=== PATIENT | male | born 2000 | race Caucasian/White ===

== ENCOUNTER 2020-02-26 10:03 | Emergency (ER) | payer SELFPAY ==
[2020-02-26 12:00] VITALS: BP 127/75; PULSE 97; RESP 18; TEMP 36.6; O2SAT 97
--- NOTE | 2020-02-26 12:46 | ED.GIBLEED ---
HPI - GI Bleed General Chief complaint: GI Bleed Stated complaint: 2 W/ weeks diarrhea and now having bloody stools Source: patient Mode of arrival: ambulatory Limitations: no limitations History of Present Illness HPI Narrative: This 19-year-old male has had GI symptoms for the last 2 weeks. Once or twice daily he developed mid abdominal cramping followed 20-30 minutes later by passing a soft formed stool. The pain subsides after 20-30 minutes. At 7:30 a.m. this morning. Stool came out soft but formed unusual color. He thought it was blood mixed with stool which is what brought into the ED. He denies hemorrhoids Or blood on tissue when he wipes. Is typical abdominal pain subsided after the bowel movement He denies family members at home at [facility]. He has had no recent travel, eaten unusual foods or drink on. For water. Related Data Home Medications Medication Instructions Recorded Confirmed No Home Medications 02/26/20 02/26/20 Allergies Allergy/AdvReac Type Severity Reaction Status Date / Time No Known Allergies Allergy Verified 02/26/20 12:48 Review of Systems Constitutional: Constitutional: Denies chills and Denies fever(s) [facility] Past Medical History Medical History (Updated 02/27/20 @ 04:39 by Shaji Denney MD) Patient denies significant medical history Exam Narrative: Exam Narrative: Appears slightly anxious in no distress healthy-appearing Const: General: no acute distress GI: Inspection: normal to inspection and non-distended GI Palp: No abdominal tenderness and Yes No hepatosplenomegaly present Rectal Exam: normal sphincter tone, No External hemorrhoid(s) present, No Anal fissure(s) present and No mass Other: soft stool in the rectum. stool for on glove is brown, there is no blood or melena. Course Vital Signs Vital signs: Vital Signs Temperature 36.6 C 02/26/20 12:00 Pulse Rate 97 02/26/20 12:00 Respiratory Rate 18 02/26/20 12:00 Blood Pressure 127/75 02/26/20 12:00 Pulse Oximetry 97 02/26/20 12:00 Temperature 36.6 C 02/26/20 12:00 Pulse Rate 97 02/26/20 12:00 Respiratory Rate 15 02/26/20 12:58 Blood Pressure 127/75 07/15/20 12:00 Pulse Oximetry 100 02/26/20 12:58 MDM - GI Bleed MDM Narrative Medical decision making narrative: he likely did not having hematochezia few of the insert and color of his stool, no blood seen on glove after rectal exam and Hemoccult negative stool. I recommend the primary care physician in 5 days GI symptoms have not resolved. Lab Data Labs: Lab Results 02/26/20 Range/Units 12:44 Stool Occult Blood Negative (Negative) Discharge Plan Discharge Clinical Impression: Abdominal pain, Abnormal stools Patient Disposition: Home, Self-Care Condition: Stable Instructions: Acute Diarrhea (ED), Abdominal Pain (ED) Prescriptions: No Action No Home Medications RF: 0 Follow-up/Referrals: UNKNOWN,DOCTOR [Primary Care Provider] - Stand Alone Forms: Work/School Release IP Time of Disposition: 13:08 Discharge Date/Time: 02/26/20 13:07
[2020-02-26 12:52] LABS: Occult Blood Negative (Negative)
[2020-02-26 12:58] VITALS: RESP 15; O2SAT 100
== END 2020-02-26 13:07 | disposition home or self-care (01) ==
PROVIDERS: Emergency Provider Family Medicine
DX: R10.9 Unspecified abdominal pain (principal); R19.5 Other fecal abnormalities
CPT/HCPCS: 99282; 99283

== ENCOUNTER 2023-11-29 16:37 | Emergency (ER) | payer OTHER, SELFPAY ==
[2023-11-29 16:41] VITALS: BP 139/83; PULSE 78; RESP 16; RESP 18; TEMP 36.6; TEMP 36.7; O2SAT 98; O2SAT 99
--- NOTE | 2023-11-29 16:50 | ED.DENTAL ---
HPI - Dental/Oral General Chief complaint: Dental/Oral Stated complaint: broken tooth Time Seen by Provider: 11/29/23 16:50 Source: patient Mode of arrival: ambulatory Limitations: no limitations History of Present Illness HPI Narrative: 23-year-old male with chronic back pain presents to the ER with dental pain. He complains of right lower dental pain for the past few days. No fever or chills. MD Complaint: tooth pain Location: Tooth # (28,29,30) Onset (ago): day(s) Duration: constant Severity: severe Relieving factors: nothing Exacerbating factors: cold and heat Context: history of dental caries Related Data Allergies Allergy/AdvReac Type Severity Reaction Status Date / Time No Known Allergies Allergy Verified 11/29/23 16:41 Review of Systems Review of Systems: All systems reviewed & are unremarkable except as noted in HPI and below Constitutional: Constitutional: Reports as per HPI and Reports no additional constitutional complaints Eyes: Eyes: Reports as per HPI and Reports no additional eye complaints ENT: Reports system reviewed and no additional complaints, except as documented and Reports as per HPI Comments: Extensive dental caries Cardiovascular: Cardiovascular: Reports as per HPI and Reports no additional cardiovascular complaints Respiratory: Respiratory: Reports as per HPI and Reports no additional respiratory complaints Gastrointestinal: Gastrointestinal: Reports as per HPI and Reports no additional gastrointestinal complaints Genitourinary: Genitourinary: Reports no additional male genitourinary complaints and Reports as per HPI Musculoskeletal: Musculoskeletal: Reports no additional musculoskeletal complaints, Reports as per HPI and Reports back pain Integumentary/Breasts: Skin/Breast: Reports system reviewed and no additional complaints, except as docu and Reports as per HPI Neurologic: Reports system reviewed and no additional complaints, except as documented and Reports as per HPI Psychiatric: Psychiatric: Reports no additional psychiatric complaints and Reports as per HPI Endocrine: Endocrine: Reports no additional endocrine complaints and Reports as per HPI Hematologic/Lymphatic: Hematologic/Lymphatic: Reports no additional hematologic/lymphatic complaints and Reports as per HPI Allergic/Immunologic: Allergic/Immunologic: Reports no additional allergic/immunologic complaints and Reports as per HPI PMFSH Past Medical History Medical History (Updated 11/29/23 @ 17:03 by John Blanc MD) Chronic low back pain Dental caries Patient denies significant medical history Exam Const: General: healthy appearing and no acute distress Nutritional Appearance: well nourished Orientation/consciousness: patient oriented x3 Limitations: no limitations HENMT: Head: normal to inspection Ears: external ears normal Face/Nose/Sinus: Normal external nose present Face and sinus: normal facial exam Mouth: Yes Normal oral and palatal mucosa present Teeth and gingiva: dentition normal ( extensive dental caries. All teeth behind the canines are affected.) Other: Right 1st and 2nd premolar and 1st molar have have enamel missing exposing the dentin. Teeth are carious. Eyes: Conjunctivae: conjunctivae normal Pupils: Equal, round and reactive pupils present EOM: EOMs intact bilaterally Direct Ophthalmoscopy: no photophobia Neck: Neck: normal visual inspection, no lymphadenopathy and no meningeal signs Chest: Chest palpation & inspection: normal inspection of the chest Resp: Effort & Inspection: normal respiratory effort Auscultation: clear to auscultation bilaterally Cardio: Rate: regular rate Rhythm: regular rhythm GI: GI Palp: Yes Soft to palpation Auscultation: normal bowel sounds : General: Yes no CVA tenderness Back/Spine/Pelvis: Back: no CVA tenderness Skin: General skin exam: normal color Rashes: no rashes Wounds: no wounds Neuro: General: patient o
[2023-11-29] MEDS: HYDROcodone/acetaminophen (*CRX) 5-325 MG TABLET 1 TAB PO (16:58)
== END 2023-11-29 17:10 | disposition home or self-care (01) ==
LOC: CHSED 17:04
PROVIDERS: Emergency Provider Internal Medicine Critical Care Medicine
DX: K02.9 Dental caries, unspecified (principal)
CPT/HCPCS: 99283; A9270

== ENCOUNTER 2024-03-05 14:17 | Outpatient (CLI) | payer OTHER, SELFPAY ==
--- NOTE | ~2024-03-05 | XR_ITS ---
3 VIEWS LUMBAR SPINE Ordering provider: Brannon Bryan APRN History: . lower disc pain . Comparison: None. FINDINGS: VERTEBRAL BODIES: No visible fracture or subluxation. 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 DISK SPACES: Normal. SOFT TISSUES: Normal. IMPRESSION: No acute osseous abnormality lumbar spine. Reviewed, dictated and finalized at location A.
--- NOTE | ~2024-03-05 | XR_ITS ---
XR hip BI 2V w AP pelvis Ordering provider: Brannon Bryan APRN History: . hip pain X 12 yrs. /pt states dr stated hips are out of mario . Comparison: None. FINDINGS: BONES: No acute fracture or dislocation. HIP JOINT SPACES: Normal. SACROILIAC JOINT SPACES/LUMBAR SPINE: The sacroiliac joint spaces are normal. Normal visualized lower lumbar spine. PUBIC SYMPHYSIS: Normal. SOFT TISSUES: Normal. IMPRESSION: No acute osseous abnormality of the bilateral hips and pelvis. Reviewed, dictated and finalized at location A.
== END 2024-03-05 14:18 | disposition home or self-care (01) ==
LOC: CHSIMG 14:20
PROVIDERS: PCP Family Medicine; Visit Provider Family Medicine
DX: G89.29 Other chronic pain (principal); M54.16 Radiculopathy, lumbar region
CPT/HCPCS: 72100; 73521

== ENCOUNTER 2024-09-23 11:10 | Outpatient (RCR) | payer OTHER, SELFPAY ==
--- NOTE | 2024-09-23 12:25 | OPREHPOC ---
Outpatient Therapy Plan of Care This is a Multidisciplinary Plan of Care that may contain components documented by all disciplines (PT, OT, and ST.) PT Problem 1 PT Problem #1 Knowledge Deficit PT Goal 1 Goal / Goal Update Independent with HEP. Target Visit 2 PT Problem 2 PT Problem #2 Pain PT Goal 1 Goal / Goal Update Pt to report no more than 4/10 headache pain at worst. Pt to report reduced frequency and intensity of headaches. Target Visit 12 PT Problem 3 PT Problem #3 Impaired Strength PT Goal 1 Goal / Goal Update Pt to improve gross cervical muscle strength to 5/ 5 without pain. Pt to improve gross cervical muscle strength to 5/ 5 without pain to improve neck stability. Target Visit 12 PT Problem 4 PT Problem #4 Impaired Range of Motion PT Goal 1 Goal / Goal Update Pt to reach 45 degrees active cervical flexion without pain. Pt to reach 25 degrees active cervical extension without pain. Target Visit 12 PT Problem 5 PT Problem #5 Impaired Functional Mobility PT Goal 1 Goal / Goal Update Pt to improve NDI score to less than 5% disability . Pt to be able to lift 20lbs from the ground without increased pain or pressure in the head/ neck. Target Visit 12
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
--- NOTE | 2024-09-23 16:51 | PCPTNOTE ---
I reviewed the License Pending Therapist's documentation and agree with the findings.
--- NOTE | 2024-10-25 15:39 | OPREHPOC ---
Outpatient Therapy Plan of Care This is a Multidisciplinary Plan of Care that may contain components documented by all disciplines (PT, OT, and ST.) PT Problem 1 PT Problem #1 Knowledge Deficit PT Goal 1 Goal / Goal Update Independent with HEP. Target Visit 2 Progress Met PT Problem 2 PT Problem #2 Pain PT Goal 1 Goal / Goal Update Pt to report no more than 4/10 headache pain at worst. -not met Pt to report reduced frequency and intensity of headaches. -reduced frequency but not intensity Target Visit 12 Progress Not Met PT Problem 3 PT Problem #3 Impaired Strength PT Goal 1 Goal / Goal Update Pt to improve gross cervical muscle strength to 5/ 5 without pain. Pt to improve gross cervical muscle strength to 5/ 5 without pain to improve neck stability. Target Visit 12 Progress Met PT Problem 4 PT Problem #4 Impaired Range of Motion PT Goal 1 Goal / Goal Update Pt to reach 45 degrees active cervical flexion without pain. Pt to reach 25 degrees active cervical extension without pain. Target Visit 12 Progress Met PT Problem 5 PT Problem #5 Impaired Functional Mobility PT Goal 1 Goal / Goal Update Pt to improve NDI score to less than 5% disability . Pt to be able to lift 20lbs from the ground without increased pain or pressure in the head/ neck. Target Visit 12 Progress Not Met
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
--- NOTE | 2024-11-01 16:41 | OPREHPOC ---
Outpatient Therapy Plan of Care This is a Multidisciplinary Plan of Care that may contain components documented by all disciplines (PT, OT, and ST.) PT Problem 1 PT Problem #1 Knowledge Deficit PT Goal 1 Goal / Goal Update Independent with HEP. Target Visit 2 Progress Met PT Problem 2 PT Problem #2 Pain PT Goal 1 Goal / Goal Update Pt to report no more than 4/10 headache pain at worst. -not met Pt to report reduced frequency and intensity of headaches. -reduced frequency but not intensity Target Visit 12 Progress Not Met PT Problem 3 PT Problem #3 Impaired Strength PT Goal 1 Goal / Goal Update Pt to improve gross cervical muscle strength to 5/ 5 without pain. Pt to improve gross cervical muscle strength to 5/ 5 without pain to improve neck stability. Target Visit 12 Progress Met PT Problem 4 PT Problem #4 Impaired Range of Motion PT Goal 1 Goal / Goal Update Pt to reach 45 degrees active cervical flexion without pain. Pt to reach 25 degrees active cervical extension without pain. Target Visit 12 Progress Met PT Problem 5 PT Problem #5 Impaired Functional Mobility PT Goal 1 Goal / Goal Update Pt to improve NDI score to less than 5% disability . -not met Pt to be able to lift 20lbs from the ground without increased pain or pressure in the head/ neck. -not met Target Visit 12 Progress Not Met
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
== END 2024-11-01 09:33 | disposition home or self-care (01) ==
LOC: CHSPT 11:10
PROVIDERS: PCP Family Medicine
DX: M54.12 Radiculopathy, cervical region (principal)
CPT/HCPCS: 95992; 97014; 97110; 97112; 97140; 97150; 97161; G0283

== ENCOUNTER 2025-03-20 11:29 | Outpatient (CLI) | payer OTHER, SELFPAY ==
--- OUTSIDE RECORDS SUMMARY | 2025-03-20 11:32 | XMS_ITS | Patient Health Record ---
Author Organization [facility] Address [address] [place] [address] Care Team Providers Care Flash Designer Name Role Phone Karan Ascencio DO Primary Care Provider Unavail able Thalia Heller Unavailable [phone] Reason For Referral No Information Social History Sex Assigned At : Social History Observation Description Sex Assigned At Male Encounters Encounter Location Date Provider Diagnosis [facility] [address] [place] [address] 11/27/2024 Thalia Heller Plan Of Treatment No Information Insurance Providers Payer Name Payer Address Payer Phone Subscriber Number Group Number Insured Name Patient Relationship to Insured Coverage Start Date Coverage End Date [employer] [address] [place] [address] [id number] Estiven Hammer Self - patient is the insured
[2025-03-20 12:04] LABS: Strep Group A RT-PCR DETECTED (Negative)
[2025-03-20 12:19] LABS: Influenza A QL RT-PCR Negative (Negative); Influenza B QL RT-PCR Negative (Negative); SARS-CoV-2 RNA PCR Negative (Negative)
== END 2025-03-20 11:30 | disposition home or self-care (01) ==
PROVIDERS: PCP Family Medicine; Visit Provider Nurse Practitioner Family
DX: J39.9 Disease of upper respiratory tract, unspecified (principal)
CPT/HCPCS: 87636; 87651